=== PATIENT | female | born 1980 | race Two or more races ===

== ENCOUNTER 2021-08-13 10:29 | Inpatient (IN) | payer OTHER ==
[~2021-08-13] VITALS: Ht 170.2 cm; Wt 3.2 kg
[2021-08-13] MEDS ORDERED: PRENATAL CAPLE1 EAC1 PO (11:53)
== END 2021-08-16 13:44 | disposition home or self-care (01) | DRG 785 ==
LOC: OB/GYN 10:29 → O/R 10:29 → LDR 10:29 → O/R 14:41 → OB/GYN 17:52
PROVIDERS: ADMIT Obstetrics & Gynecology; ATTEND Obstetrics & Gynecology
PROC: 0UT70ZZ Resection of Bilateral Fallopian Tubes, Open Approach (ICD-10-PCS; 2021-08-13)
PROC: 4A1HXCZ Monitoring of Products of Conception, Cardiac Rate, External Approach (ICD-10-PCS; 2021-08-13)
PROC: 10D00Z1 Extraction of Products of Conception, Low, Open Approach (ICD-10-PCS; principal; 2021-08-13 15:45)
DX: O34.211 Maternal care for low transverse scar from previous cesarean delivery (principal); Z3A.38 38 weeks gestation of pregnancy; Z37.0 Single live birth; Z30.2 Encounter for sterilization; Z20.822 Contact with and (suspected) exposure to COVID-19